=== PATIENT | female | born 1955 | race Caucasian/White ===

== ENCOUNTER 2019-09-23 01:31 | Outpatient (CLI) | payer BC, SELFPAY ==
--- NOTE | 2019-09-23 14:34 | DI.RAD_ITS ---
EXAM: XR LUMBAR SPINE COMPLETE CLINICAL HISTORY: Chronic LBP, bilat sciatica, dorsalgia, M54.9, G89.29, M54.31, M54.32. TECHNIQUE: 2D digital imaging was performed. COMPARISON: No exams were available for comparison FINDINGS: There is a right convex scoliosis. There are 5 lumbar type vertebral bodies. No evidence of spondyl olysis or spondylolisthesis. There is disc space narrowing at all levels of the lumbar spine. Vacuu m discs are seen at L2-3, L3-4, L4-5 and L5-S1. There are endplate osteophytes and degenerative winters ges of the facets throughout the lumbar spine. No acute fractures or subluxations are present. Exte nsive atherosclerosis is present. IMPRESSION: Moderately severe degenerative changes in the lumbar spine. DATA REPOSITORY: RADIATION DOSE DELIVERED:
== END 2019-09-23 01:51 ==
PROVIDERS: PCP Nurse Practitioner; Visit Provider Nurse Practitioner
DX: M54.5 Low back pain (principal); M54.31 Sciatica, right side; M54.32 Sciatica, left side; G89.29 Other chronic pain; M51.17 Intervertebral disc disorders with radiculopathy, lumbosacral region
CPT/HCPCS: 72110

== ENCOUNTER 2020-07-08 02:56 | Outpatient (CLI) | payer OTHER, SELFPAY ==
[2020-07-08 07:25] LABS: Hemoglobin A1C 5.6 % (<5.7)
[2020-07-08 08:34] LABS: Calculated LDL 106 mg/dL (<100); Cholesterol 187 mg/dL (<200); HDL Cholesterol 69 mg/dL (40-60); Triglyceride 63 mg/dL (<150)
== END 2020-07-08 02:57 | disposition home or self-care (01) ==
LOC: LBO 02:56
PROVIDERS: PCP Nurse Practitioner; Visit Provider Nurse Practitioner
DX: I10 Essential (primary) hypertension (principal); E78.00 Pure hypercholesterolemia, unspecified; E66.9 Obesity, unspecified
CPT/HCPCS: 36415; 80061; 83036

== ENCOUNTER 2020-12-09 05:06 | Emergency (ER) | payer OTHER, SELFPAY ==
[2020-12-09 05:08] VITALS: BP 128/73; PULSE 100; RESP 18; TEMP 36.5; O2SAT 98
--- NOTE | 2020-12-09 05:15 | DI.RAD_ITS ---
Exam(s) XR HIP RT COMPLETE AP PELVIS EXAM: XR HIP RT COMPLETE AP PELVIS CLINICAL HISTORY: right si joint pain. TECHNIQUE: 2D digital imaging was performed. COMPARISON: No exams were available for comparison FINDINGS: No evidence of pelvic nor hip fracture. Mild-moderate degenerative changes are noted in the right hi p. Milder degenerative changes in the left hip. Sacroiliac joints appear unremarkable. Chronic deg enerative disc disease noted in the visualized lower lumbar spine. IMPRESSION: DATA REPOSITORY: RADIATION DOSE DELIVERED:
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
[2020-12-09] MEDS: Ketorolac 30 MG/ML VIAL IM (05:27)
[2020-12-09] MEDS: Lidocaine 5% Patch 1 PATCH TP (05:27)
[2020-12-09 06:17] VITALS: BP 99/53; PULSE 86; RESP 18; O2SAT 98
--- NOTE | 2020-12-09 06:53 | DI.VRAD_ITS ---
PROCEDURE INFORMATION: Exam: XR Right Hip Exam date and time: 12/09/2020 5:22 AM Age: 65 years old Clinical indication: Other: Right si joint pain TECHNIQUE: Imaging protocol: XR Right hip. Views: 2 or 3 views hip with pelvis when performed. COMPARISON: CR XR LUMBAR SPINE COMPLETE 09/23/2019 2:16 PM FINDINGS: Bones/joints: Mild degenerative changes in both hips and at the pubic symphysis. The no acute fracture or dislocation. Degenerative changes in the visualized lower spine. Soft tissues: Unremarkable. Vasculature: Pelvic phleboliths. IMPRESSION: No acute findings. Degenerative changes as above. Dictated and Authenticated by: Jose Peter MD. Ordering:ELLEN Rivera MD
== END 2020-12-09 06:25 | disposition home or self-care (01) ==
PROVIDERS: Emergency Provider Student in an Organized Health Care Education/Training Program; PCP Nurse Practitioner
DX: M46.1 Sacroiliitis, not elsewhere classified (principal)
CPT/HCPCS: 96372; 99284; 73502; 99283; J1885

== ENCOUNTER 2021-01-07 03:23 | Outpatient (CLI) | payer OTHER, SELFPAY ==
--- NOTE | 2021-01-07 08:45 | DI.MAMMO_ITS ---
Exam(s) MAMMO SCREENING EXAM: MAMMO SCREENING CLINICAL HISTORY: screening,Z12.39 TECHNIQUE: Bilateral full field digital CC and MLO mammographic images were obtained with 3D tomosyn thesis and utilizing computer aided detection (CAD). COMPARISON: Available for comparison. FINDINGS: Masses/Architectural Distortion: None seen. Microcalcifications: No suspicious pleomorphic-type are seen. Skin Thickening/Nipple Retraction: None. IMPRESSION: 1. No significant interval change with no specific features of malignancy noted. 2. Unless there is more urgent need, screening mammography is recommended, as per [employer] [place] guidelines. BI-RADS Category 1 - Negative Breast Density - Category B - Scattered areas of fibroglandular density Breast density category C or D implies that the patient has dense breast tissue. Dense breast tissue is very common and is not abnormal but dense breast tissue can make it harder to find cancer on a ma mmogram. Also, dense breast tissue may increase their breast cancer risk. This information about the result of the mammogram report was provided to the patient to raise their awareness. Use this report when you speak with the patient about their risks for breast cancer, which includes their family hist ory. At that time, you may recommend for more screening tests (Ultrasound or MRI) as they might be us eful based on their risk. A negative radiographic report should not delay biopsy if a dominant or clinically suspicious mass is present. Up to ten percent of cancers are not identified on mammography. A negative report may reinforce clinical impression. Adenosis and dense breasts may obscure an underlying neoplasm. False positive reports average 6 to 10%. Patient will receive a letter notifying them of these results.
== END 2021-01-07 03:43 ==
PROVIDERS: PCP Nurse Practitioner; Visit Provider Nurse Practitioner
DX: Z12.31 Encounter for screening mammogram for malignant neoplasm of breast (principal)
CPT/HCPCS: 77063; 77067

== ENCOUNTER 2021-07-25 02:49 | Outpatient (CLI) | payer OTHER, SELFPAY ==
[2021-07-25 07:10] LABS: HCT 37.6 % (36.0-46.0); HGB 12.3 g/dL (11.2-15.7); MCH 34.4 pg (27.0-33.0); MCHC 32.7 % (32.0-36.0); Platelet Count 211 10^3/uL (130-400); RBC 3.58 10^6/uL (3.93-5.22); RDW 11.9 % (11.7-14.6); RDW-SD 46.4 fL
[2021-07-25 07:52] LABS: Hemoglobin A1C 5.4 % (<5.7)
[2021-07-25 08:33] LABS: ALT 23 U/L (14-59); AST 17 U/L (15-37); Alkaline Phosphatase 71 U/L (46-116); Anion Gap 6.2 mmol/L (3-11); BUN 24 mg/dL (7-18); Bilirubin, Total 0.3 mg/dL (0.2-1.0); CO2 29.8 mmol/L (21.0-32.0); CREATININE 0.9 mg/dL (0.55-1.02); Calcium 9.3 mg/dL (8.5-10.1); Chloride 102 mmol/L (98-107); Glucose 104 mg/dL (74-106); Potassium 4.9 mmol/L (3.5-5.1); Sodium 138 mmol/L (136-145)
[2021-07-25 08:49] LABS: Calculated LDL 119 mg/dL (<100); Cholesterol 200 mg/dL (<200); HDL Cholesterol 68 mg/dL (40-60); Triglyceride 65 mg/dL (<150)
== END 2021-07-25 02:50 | disposition home or self-care (01) ==
LOC: LBO 02:50
PROVIDERS: PCP Nurse Practitioner; Visit Provider Nurse Practitioner
DX: Z00.00 Encounter for general adult medical examination without abnormal findings (principal); Z13.0 Encounter for screening for diseases of the blood and blood-forming organs and certain disorders involving the immune mechanism; Z13.220 Encounter for screening for lipoid disorders; Z13.1 Encounter for screening for diabetes mellitus
CPT/HCPCS: 36415; 80053; 80061; 85027; 83036

== ENCOUNTER → 2021-12-13 01:50 | Outpatient (CLI) | payer OTHER, SELFPAY ==
--- NOTE | 2021-12-13 14:19 | DI.RAD_ITS ---
Exam(s) XR CERVICAL SPINE COMP 4-5V EXAM: XR CERVICAL SPINE COMP 4-5V CLINICAL HISTORY: upper extremity weakness, R29.898, R20.0 TECHNIQUE: COMPARISON: No exams were available for comparison FINDINGS: Seven views were obtained. There is some loss of height of the intervertebral disc spaces at C5-6 an d C6-7. There are prominent hypertrophic endplate changes from C4-5 through C7-T1. The neural francisco javier alexa may be narrowed on the left at C 3 4 and C4-5 and on the right at C 4 5 and C5-6. No evidence of fracture or dislocation. IMPRESSION: Degenerative changes of the cervical spine as described above. RADIATION DOSE DELIVERED: Total DLP
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
== END ==
PROVIDERS: PCP Nurse Practitioner; Visit Provider Nurse Practitioner
DX: M54.41 Lumbago with sciatica, right side; M54.42 Lumbago with sciatica, left side; R20.0 Anesthesia of skin; R29.898 Other symptoms and signs involving the musculoskeletal system; G89.29 Other chronic pain; M53.3 Sacrococcygeal disorders, not elsewhere classified; M51.16 Intervertebral disc disorders with radiculopathy, lumbar region; M50.322 Other cervical disc degeneration at C5-C6 level; M50.323 Other cervical disc degeneration at C6-C7 level
CPT/HCPCS: 72050; 72110

== ENCOUNTER → 2022-02-21 02:37 | Outpatient (CLI) | payer OTHER, SELFPAY ==
--- NOTE | 2022-02-21 13:13 | DI.MAMMO_ITS ---
Exam(s) MAMMO SCREENING EXAM: MAMMO SCREENING CLINICAL HISTORY: screening,z12.39 TECHNIQUE: Bilateral full field digital CC and MLO mammographic images were obtained with 3D tomosyn thesis and utilizing computer aided detection (CAD). COMPARISON: Available for comparison. FINDINGS: Masses/Architectural Distortion: There is an asymmetric density in the upper central left breast on t he MLO view. There is a question of architectural distortion in the central upper right breast on th e MLO view. Microcalcifications: No suspicious pleomorphic-type are seen. Skin Thickening/Nipple Retraction: None. IMPRESSION: 1. Areas of asymmetric breast tissue in both breasts as described. 2. Additional views are requested. Ultrasound may be indicated at that time. BI-RADS Category 0 - Assessment Incomplete: Need additional imaging evaluation Breast Density - Category B - Scattered areas of fibroglandular density Breast density category C or D implies that the patient has dense breast tissue. Dense breast tissue is very common and is not abnormal but dense breast tissue can make it harder to find cancer on a ma mmogram. Also, dense breast tissue may increase their breast cancer risk. This information about the result of the mammogram report was provided to the patient to raise their awareness. Use this report when you speak with the patient about their risks for breast cancer, which includes their family hist ory. At that time, you may recommend for more screening tests (Ultrasound or MRI) as they might be us eful based on their risk. A negative radiographic report should not delay biopsy if a dominant or clinically suspicious mass is present. Up to ten percent of cancers are not identified on mammography. A negative report may reinforce clinical impression. Adenosis and dense breasts may obscure an underlying neoplasm. False positive reports average 6 to 10%. Patient will receive a letter notifying them of these results.
== END ==
PROVIDERS: PCP Nurse Practitioner; Visit Provider Nurse Practitioner
DX: Z12.31 Encounter for screening mammogram for malignant neoplasm of breast (principal); R92.8 Other abnormal and inconclusive findings on diagnostic imaging of breast
CPT/HCPCS: 77063; 77067

== ENCOUNTER → 2022-02-24 00:18 | Outpatient (CLI) | payer OTHER, SELFPAY ==
--- NOTE | 2022-02-24 | DI.US_ITS ---
Exam(s) US BREAST LT COMPLETE US BREAST RT COMPLETE MG MAMMO SCREEN CALL BACK BI EXAM: MG MAMMO SCREEN CALL BACK BI AND BILATERAL COMPLETE BREAST ULTRASOUND CLINICAL HISTORY: ASYMMETRIC DENSITY LT BREAST, ARCHITECTURAL DISTORTION RT BREAST. TECHNIQUE: BILATERAL lspot mammographic images obtained with 3D tomosynthesisand utilizing computer aided detection (CAD). . Complete BILATERAL breast Ultrasound was also performed, including all 4 quadrants, the retroareolar region, and the ipsilateral axilla. COMPARISON: Prior mammograms were reviewed. This additional imaging was performed due to findings described on the recent screening mammogram of 02/21/2022. FINDINGS: DIAGNOSTIC MAMMOGRAM: Additional mammographic views performed todayrender both areas less concerning. COMPLETE BILATERAL BREAST ULTRASOUND: Ultrasound performed today reveals no evidence of solid or significant cystic lesions in either breas t.. Scanning of both axillary regions reveals no significant adenopathy. IMPRESSION: 1. No radiographic evidence of malignancy in either breast. 2. Negative bilateral complete breast ultrasound Appropriate follow-up is repeat bilateral mammogram in 6 months. The patient was informed of these findings and recommendations prior to leaving the department today. BI-RADS Category 3 - 6 month - Probably Benign Finding: Recommend follow-up mammography in 6 months Breast Density - Category B - Scattered areas of fibroglandular density Breast density Category C or D implies that the patient has dense breast tissue. Dense breast tissue can make it harder to find cancer on a mammogram. Dense breast tissue is also associated with an incr eased risk of breast cancer. This information about the result of the mammogram report was provided to the patient to raise their awareness. Use this report when you speak with the patient about their risks for breast cancer, which includes their family history. At that time, you may recommend additional screening tests (Ultrasoun d or MRI) as these tests may add significant information. A negative radiographic report should not delay biopsy if a dominant or clinically suspicious mass is present. Up to ten percent of cancers are not identified on mammography. A negative report may reinforce clinical impression. Adenosis and dense breasts may obscure an underlying neoplasm. False positive reports average 6 to 10%. Patient will receive a letter notifying them of these results.
== END ==
PROVIDERS: PCP Nurse Practitioner; Visit Provider Nurse Practitioner
DX: Z12.31 Encounter for screening mammogram for malignant neoplasm of breast (principal); R92.8 Other abnormal and inconclusive findings on diagnostic imaging of breast
CPT/HCPCS: 76642; 77063; 77067

== ENCOUNTER 2023-03-15 01:51 | Outpatient (CLI) | payer OTHER, SELFPAY ==
[2023-03-15 07:40] LABS: Abs Immature Grans 0.03 10^3/uL (0.0-0.06); Absolute Basophil Count 0.02 10^3/uL (0.0-0.2); Absolute Eosinophil Count 0.19 10^3/uL (0.0-0.7); Absolute Lymphocyte Count 1.55 10^3/uL (1.2-3.4); Absolute Monocyte Count 0.56 10^3/uL (0.1-0.8); Absolute Neutrophil Count 4.34 10^3/uL (1.2-6.7); Basophils % 0.3; Eosinophils % 2.8; HCT 35.9 % (36.0-46.0); Immature Grans % 0.4; Lymphocytes % 23.2; MCHC 33.4 % (32.0-36.0); MCV 102 fL (80-95); MPV 9.7 fL (8.0-11.0); Monocytes % 8.4; Neutrophils % 64.9; Platelet Count 197 10^3/uL (130-400); RBC 3.53 10^6/uL (3.93-5.22); RDW 11.8 % (11.7-14.6); RDW-SD 43.9 fL; WBC 6.69 10^3/uL (4.4-10.8)
[2023-03-15 07:41] LABS: ESR 13 mm/hr (0-30)
[2023-03-15 08:02] LABS: PTT Activated 24.4 sec (23.6-32.8)
[2023-03-15 08:04] LABS: C-Reactive Protein 0.95 mg/dL (0.0-0.3)
[2023-03-15 08:07] LABS: Hemoglobin A1C 5.2 % (<5.7)
== END 2023-03-15 01:52 | disposition home or self-care (01) ==
LOC: LBO 01:51
PROVIDERS: PCP Nurse Practitioner; Visit Provider Optometrist
DX: H34.233 Retinal artery branch occlusion, bilateral (principal)
CPT/HCPCS: 36415; 85652; 83036; 85025; 85610; 85730; 86140

== ENCOUNTER 2023-03-19 11:06 | Outpatient (CLI) | payer OTHER, SELFPAY ==
--- NOTE | 2023-03-19 11:00 | RT.EKG_ITS ---
APPROVED REPORT Exam: Resting ECG Reason for Exam: plaque eye vessals Patient Location: O HR:94 bpm ECG Measurements Heart Rate 94 AXIS VT 175 P 56 QRSd 93 QRS 49 QT 352 T 28 QTc 441 Conclusion Sinus rhythm...normal P axis, V-rate 50- 99 Borderline T abnormalities, anterior leads...T flat or neg, V2-V4
== END 2023-03-19 11:07 | disposition home or self-care (01) ==
LOC: DI.KIM 11:07
PROVIDERS: PCP Nurse Practitioner; Visit Provider Nurse Practitioner
DX: H57.9 Unspecified disorder of eye and adnexa (principal)
CPT/HCPCS: 93010

== ENCOUNTER 2023-05-18 04:34 | Emergency (ER) | payer OTHER, SELFPAY ==
[2023-05-18 04:38] VITALS: BP 162/98; PULSE 98; RESP 22; TEMP 36.4; O2SAT 96
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
--- NOTE | 2023-05-18 05:10 | DI.RAD_ITS ---
Exam(s) XR FOREARM RT XR WRIST RT COMPLETE EXAM: XR WRIST RT COMPLETE and XR forearm RT CLINICAL HISTORY: wrist pain and swelling. TECHNIQUE: 2D digital imaging was performed of the right forearm and wrist. Five views were obtaine d. PA, lateral and oblique views were obtained. COMPARISON: CR,XR XR FOREARM RT from 05/18/2023 FINDINGS: BONES: There is an acute transverse fracture through the distal metaphysis of the right radius. On th e lateral view there is 1.5 mm posterior displacement of the distal fracture. There is also osseous d ensity at the dorsum of the wrist on the lateral view suggesting a triquetral fracture. No bony destr uctive lesion is seen. JOINTS: The carpal bones are normally aligned. Degenerative changes are seen at the 1st CMC joint. SOFT TISSUE: Normal. IMPRESSION: 1. Acute mildly displaced distal radial metaphyseal fracture. 2. Acute triquetral fracture. DATA REPOSITORY: RADIATION DOSE DELIVERED:
[2023-05-18] MEDS: Acetaminophen 500 MG TAB 1000 MG PO (05:19)
[2023-05-18] MEDS: Ketorolac 15 MG/ML VIAL IM (05:20)
--- NOTE | 2023-05-18 06:24 | DI.VRAD_ITS ---
PROCEDURE INFORMATION: Exam: XR Right Wrist Exam date and time: 05/18/2023 5:04 AM Age: 67 years old Clinical indication: Injury or trauma; Fall; Blunt trauma (contusions or hematomas); Wrist; Right; Injury date: 05/17/23; Injury details: [place] TECHNIQUE: Imaging protocol: Radiologic exam of the right wrist. Views: 3 or more views. COMPARISON: No relevant prior studies available. FINDINGS: Bones/joints: There is subtle lucency with surrounding sclerosis of the distal radial metaphysis. Lateral projection demonstrates slight volar apex angulation and impaction. Lateral projection demonstrates possible ossific fragment at the dorsal aspect of the carpal row. Mild diffuse osteopenia. Mild scattered osteoarthritis changes. Soft tissues: Normal. IMPRESSION: 1. Minimally displaced transverse fracture of the right distal radial metaphysis. 2. Suggestion of possible concurrent triquetral fracture. Dictated and Authenticated by: Chadd Velázquez MD. Ordering:KWAN Strong MD
--- NOTE | 2023-05-18 06:25 | DI.VRAD_ITS ---
PROCEDURE INFORMATION: Exam: XR Right Forearm Exam date and time: 05/18/2023 5:12 AM Age: 67 years old Clinical indication: Injury or trauma; Fall; Blunt trauma (contusions or hematomas); Wrist; Right; Injury date: 05/17/23; Injury details: [place] TECHNIQUE: Imaging protocol: Radiologic exam of the right forearm. Views: 2 views. COMPARISON: CR XR WRIST RT COMPLETE 05/18/2023 5:04 AM FINDINGS: Bones/joints: Redemonstrated transverse fracture of the distal right radius better appreciated on the concurrently performed wrist radiographs on 05/18/2023. Soft tissues: Normal. IMPRESSION: Redemonstrated transverse fracture of the distal right radius better appreciated and characterized on concurrently performed wrist radiographs on 05/18/2023. Dictated and Authenticated by: Chadd Velázquez MD. Ordering:KWAN Strong MD
== END 2023-05-18 07:38 | disposition home or self-care (01) ==
PROVIDERS: Emergency Provider Student in an Organized Health Care Education/Training Program; PCP Nurse Practitioner
DX: M25.531 Pain in right wrist (principal); S52.501A Unspecified fracture of the lower end of right radius, initial encounter for closed fracture; W19.XXXA Unspecified fall, initial encounter
CPT/HCPCS: 29125; 96372; 99283; 73090; 73110; J1885

== ENCOUNTER 2023-05-24 15:37 | Outpatient (CLI) | payer OTHER, SELFPAY ==
--- NOTE | 2023-05-24 14:15 | DI.RAD_ITS ---
Exam(s) XR WRIST RT LIMITED EXAM: XR WRIST RT LIMITED CLINICAL HISTORY: F/U FRACTURE. TECHNIQUE: 2D digital imaging was performed. Three views. COMPARISON: CR,XR XR WRIST RT COMPLETE from 05/18/2023 FINDINGS: There has been no change in the alignment of the distal radial fracture. No new abnormalities are se en. DATA REPOSITORY: RADIATION DOSE DELIVERED:
== END 2023-05-24 15:38 | disposition home or self-care (01) ==
LOC: DIORS 15:37
PROVIDERS: PCP Nurse Practitioner; Visit Provider Physician Assistant
DX: S52.324D Nondisplaced transverse fracture of shaft of right radius, subsequent encounter for closed fracture with routine healing (principal); X58.XXXD Exposure to other specified factors, subsequent encounter
CPT/HCPCS: 73100

== ENCOUNTER 2023-05-31 10:20 | Outpatient (CLI) | payer OTHER, SELFPAY ==
--- NOTE | 2023-05-31 10:00 | DI.RAD_ITS ---
Exam(s) XR WRIST RT LIMITED EXAM: XR WRIST RT LIMITED INDICATION: F/U R DISTAL RADIUS FX. COMPARISON: CR XR WRIST RT LIMITED from 05/24/2023 TECHNIQUE: 2D digital imaging was performed. Two views. FINDINGS: There has been no change in the alignment of the distal radial fracture. No new abnormalities are id entified. DATA REPOSITORY: RADIATION DOSE DELIVERED:
== END 2023-05-31 10:21 | disposition home or self-care (01) ==
LOC: DIORS 10:20
PROVIDERS: PCP Nurse Practitioner; Referring Provider Nurse Practitioner; Visit Provider Physician Assistant
DX: S52.325D Nondisplaced transverse fracture of shaft of left radius, subsequent encounter for closed fracture with routine healing (principal); X58.XXXD Exposure to other specified factors, subsequent encounter
CPT/HCPCS: 73100

== ENCOUNTER 2023-06-25 15:42 | Outpatient (CLI) | payer OTHER, SELFPAY ==
--- NOTE | 2023-06-25 13:45 | DI.RAD_ITS ---
Exam(s) XR WRIST RT LIMITED EXAM: XR WRIST RT LIMITED CLINICAL HISTORY: DISTAL RADIAL FRACTURE. TECHNIQUE: 2D digital imaging was performed of the right wrist. Two views were obtained. PA and la teral views were obtained. COMPARISON: CR,XR XR WRIST RT COMPLETE from 05/18/2023 CR XR WRIST RT LIMITED from 05/24/2023 CR XR WRIST RT LIMITED from 05/31/2023 FINDINGS: BONES: Given the slight changes in positioning there does not appear to be any significant change in alignment of the distal radial fracture. No new fracture is identified. No bony destructive lesion is seen. JOINTS: The carpal bones are normally aligned. SOFT TISSUE: Normal. IMPRESSION: Stable alignment of the distal right radial fracture. DATA REPOSITORY: RADIATION DOSE DELIVERED:
== END 2023-06-25 15:43 | disposition home or self-care (01) ==
LOC: DIORS 15:42
PROVIDERS: PCP Nurse Practitioner; Referring Provider Nurse Practitioner; Visit Provider Student in an Organized Health Care Education/Training Program
DX: S52.514D Nondisplaced fracture of right radial styloid process, subsequent encounter for closed fracture with routine healing (principal); X58.XXXD Exposure to other specified factors, subsequent encounter
CPT/HCPCS: 73100

== ENCOUNTER → 2023-09-26 00:34 | Outpatient (CLI) | payer OTHER, SELFPAY ==
--- NOTE | 2023-09-26 07:45 | DI.MAMMO_ITS ---
Exam(s) MAMMO SCREENING EXAM: MAMMO SCREENING CLINICAL HISTORY: screening,z12.39. TECHNIQUE: Bilateral full field digital CC and MLO mammographic images were obtained with 3D tomosyn thesis and utilizing computer aided detection (CAD). COMPARISON: Prior mammograms were reviewed. Prior ultrasounds reviewed FINDINGS: There has been no significant change in the appearance and distribution of the fibroglandular tissue. There are no new spiculated masses nor malignant appearing microcalcification groups. There is no significant architectural distortion nor skin thickening-retraction. IMPRESSION: No radiographic evidence of malignancy. BI-RADS Category 1 - Negative Breast Density - Category B - Scattered areas of fibroglandular density Breast density Category C or D implies that the patient has dense breast tissue. Dense breast tissue can make it harder to find cancer on a mammogram. Dense breast tissue is also associated with an incr eased risk of breast cancer. This information about the result of the mammogram report was provided to the patient to raise their awareness. Use this report when you speak with the patient about their risks for breast cancer, which includes their family history. At that time, you may recommend additional screening tests (Ultrasoun d or MRI) as these tests may add significant information. A negative radiographic report should not delay biopsy if a dominant or clinically suspicious mass is present. Up to ten percent of cancers are not identified on mammography. A negative report may reinforce clinical impression. Adenosis and dense breasts may obscure an underlying neoplasm. False positive reports average 6 to 10%. Patient will receive a letter notifying them of these results.
== END ==
PROVIDERS: PCP Nurse Practitioner; Visit Provider Nurse Practitioner
DX: Z12.31 Encounter for screening mammogram for malignant neoplasm of breast (principal)
CPT/HCPCS: 77063; 77067

== ENCOUNTER 2024-04-22 13:05 | Emergency (ER) | payer MEDICARE, SELFPAY ==
[2024-04-22 13:15] VITALS: BP 129/65; PULSE 107; RESP 20; TEMP 36.9; O2SAT 100
[2024-04-22 14:36] VITALS: PULSE 95; O2SAT 97
[2024-04-22] MEDS: Ketorolac 15 MG/ML VIAL 7.5 MG IVP (14:39)
[2024-04-22] MEDS: Lidocaine 5% Patch 1 PATCH TP (14:40)
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
== END 2024-04-22 14:40 | disposition home or self-care (01) ==
PROVIDERS: Emergency Provider Physician Assistant; PCP Nurse Practitioner
DX: M25.552 Pain in left hip (principal); Z79.82 Long term (current) use of aspirin; Z87.891 Personal history of nicotine dependence
CPT/HCPCS: 96374; 99284; 99283; J1885

== ENCOUNTER 2025-03-30 00:44 | Outpatient (CLI) | payer MEDICARE, SELFPAY ==
[2025-03-30 07:49] LABS: Anion Gap 8.4 mmol/L (3-11); BUN 24 mg/dL (9-23); CO2 28.6 mmol/L (20.0-31.0); Calcium 9.4 mg/dL (8.3-10.6); Chloride 103 mmol/L (98-107); Cholesterol 175 mg/dL (<200); Glucose 112 mg/dL (74-106); HDL Cholesterol 42 mg/dL (>40); Potassium 4.7 mmol/L (3.5-5.1); Sodium 140 mmol/L (136-145)
== END 2025-03-30 00:45 | disposition home or self-care (01) ==
LOC: LBO 00:44
PROVIDERS: PCP Nurse Practitioner Family; Visit Provider Nurse Practitioner Family
DX: E78.00 Pure hypercholesterolemia, unspecified (principal); I10 Essential (primary) hypertension
CPT/HCPCS: 36415; 80048; 80061